=== PATIENT | male | born 1995 | race Caucasian/White ===

== ENCOUNTER 2020-11-24 08:38 | Emergency (ER) | payer OTHER, SELFPAY ==
--- NOTE | ~2020-11-24 | XR_ITS ---
EXAMINATION: XR SHOULDER, LEFT CLINICAL INFORMATION: Pain COMPARISON: None TECHNIQUE: AP external rotation, Grashey, scapular Y, and axillary views of the left shoulder. FINDINGS: No fracture or dislocation. The glenohumeral joint is well aligned. The joint space is maintained. The acromioclavicular joint is intact. The visualized lung is clear. The visualized ribs are intact. XR/XR shoulder LT min 2V IMPRESSION: Normal left shoulder.
[2020-11-24 09:18] VITALS: BP 141/66; PULSE 76; RESP 16; TEMP 36.7; O2SAT 100; BMI 18.1
--- NOTE | 2020-11-24 09:47 | ED.EXTPRO ---
HPI - Extremity Problem General Chief complaint: Extremity Injury, Upper Stated complaint: left shoulder pain Time Seen by Provider: 11/24/20 09:46 History of Present Illness HPI Narrative: Complains of left shoulder pain for 2 days no obvious injury, no numbness no weakness no tingling no neck pain no chest pain Related Data Previous Rx's Medication Instructions Recorded ibuprofen 600 mg PO Q6H PRN #20 tab 11/24/20 Allergies Allergy/AdvReac Type Severity Reaction Status Date / Time fish derived [FISH] Allergy Unknown ANAPHYLAXIS Unverified 05/12/20 17:13 eleazar [ELEAZAR] Allergy Unknown ANAPHYLAXIS Unverified 05/12/20 17:13 Review of Systems Review of Systems: Positive for left shoulder pain negatives are no fever no chills no dizziness no weakness no headache no neck pain no chest pain no rash no numbness or weakness PMFSH Past Medical History Source: nursing notes reviewed Medical History (Updated 11/25/20 @ 00:01 by Raiza Carcamo) Asthma Social History Social History Smoking Status: Current every day smoker Use of substances other than those prescribed or required for medical reasons: Yes Substance Use Type: Marijuana Substance Use Frequency: Daily Advance Directives: Yes Advance Directives Information Provided: Yes Advance Directives on File: No Physical Exam Vital Signs: Vital Signs: Last Vital Signs Temp 98.0 F 11/24/20 09:18 Pulse 76 11/24/20 09:18 Resp 16 11/24/20 09:18 BP 141/66 H 11/24/20 09:18 Pulse Ox 100 11/24/20 09:18 Body Mass Index 18.1 General appearance is no acute distress, comp comfortable and cooperative, a and O x3 The head is normocephalic atraumatic Neck is supple and nontender Chest is clear to auscultation bilaterally with no adventitious sounds noted, no tenderness to chest wall The heart rate regular no murmur Extremities the left shoulder has some limited range motion due to pain, it is not red or warm the skin is normal there is no obvious swelling it is neurovascular intact distal, and pain is reproduced with extension abduction and external rotation The skin no rashes Neuro no motor sensory deficit Course Course Course Narrative: No acute finding on left shoulder x-ray and patient who is well appearing with no evidence of septic joint is referred to orthopedist for follow-up Discharge Plan Discharge Clinical Impression: Arthralgia of left shoulder region Patient Disposition: Home, Self-Care Additional Instructions: Follow with orthopedist for further evaluation Her x-ray was normal, most of these problems are in the soft tissue muscles to tendons and ligaments that get inflamed and usually improve on their own over time If pain continues follow with orthopedist for possible steroid injection Return any time any concerns Prescriptions: New ibuprofen 600 mg tablet 600 mg PO Q6H PRN (Reason: pain) Qty: 20 RF: 0 Referrals: Paul Guillermo MD [Physician] - 2 days (Left shoulder pain, possible steroid shot) Stand Alone Forms: Work/School Release Interventions: ED Discharge Assessment Last Done: 11/24/20 10:59 Discharge Date/Time: 11/24/20 11:00
== END 2020-11-24 11:00 | disposition home or self-care (01) ==
PROVIDERS: Emergency Provider Emergency Medicine Emergency Medical Services; PCP Nurse Practitioner Family
DX: M25.512 Pain in left shoulder (principal); F17.200 Nicotine dependence, unspecified, uncomplicated; F12.90 Cannabis use, unspecified, uncomplicated
CPT/HCPCS: 73030; 99283

== ENCOUNTER 2022-01-13 19:25 | Emergency (ER) | payer OTHER, SELFPAY ==
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
[2022-01-13 19:34] VITALS: BP 118/73; PULSE 83; RESP 18; TEMP 36.6; O2SAT 98; BMI 17.5
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
[2022-01-13] MEDS: Cyclobenzaprine HCl 10 MG TABLET PO (21:22)
== END 2022-01-13 21:45 | disposition home or self-care (01) ==
PROVIDERS: Emergency Provider Emergency Medicine; PCP Nurse Practitioner Family
DX: S13.4XXA Sprain of ligaments of cervical spine, initial encounter (principal); S49.92XA Unspecified injury of left shoulder and upper arm, initial encounter; M54.2 Cervicalgia; V43.62XA Car passenger injured in collision with other type car in traffic accident, initial encounter; Y93.9 Activity, unspecified; Y92.410 Unspecified street and highway as the place of occurrence of the external cause; Y99.9 Unspecified external cause status; Z79.899 Other long term (current) drug therapy
CPT/HCPCS: 73030; 99282; 99283

== ENCOUNTER 2023-07-22 09:33 | Emergency (ER) | payer OTHER, SELFPAY ==
--- NOTE | ~2023-07-22 | US_ITS ---
EXAMINATION: US SCROTUM CLINICAL INFORMATION: Bilateral testicular pain. COMPARISON: Testicular ultrasound 06/25/2018. TECHNIQUE: A sonogram of the scrotum was performed assessing messer-scale appearance and color Doppler flow. Spectral Doppler analysis of the arterial and venous flow were performed in the testes bilaterally. FINDINGS: RIGHT: Right testicle measures 4.6 x 2.4 x 3.1 cm, volume 18 mL. No focal testicular parenchymal lesions are visualized. Spectral Doppler analysis of the arterial and venous flow is normal in the right testis. Right epididymal head is normal in size. No right hydrocele or varicocele is seen. Right epididymal Doppler flow is normal. LEFT: Left testicle measures 4.6 x 2.7 x 3.5 cm, volume 22 mL. No focal testicular parenchymal lesions are visualized. Spectral Doppler analysis of the arterial and venous flow is normal in the left testis. Left epididymal head is normal in size. No left hydrocele or varicocele is seen. Left epididymal Doppler flow is normal. ADDITIONAL FINDINGS: There is a 4.8 x 0.9 x 1.4 cm complex extratesticular collection in the right groin with heterogeneous debris, thickened [place]way and significant surrounding hyperemia concerning for an abscess in the appropriate clinical context. Several prominent adjacent right inguinal lymph nodes are seen with overall a nonaggressive morphology including preserved fatty hilum and reniform shape, that are most likely reactive. US/US scrotum doppler IMPRESSION: There is a 4.8 cm complex, extratesticular collection in the right groin concerning for an abscess in the appropriate clinical context. Reactive right inguinal lymphadenopathy seen. Recommend short-term follow-up ultrasound after treatment to ensure appropriate resolution.
--- NOTE | ~2023-07-22 | US_ITS ---
EXAMINATION: US SCROTUM CLINICAL INFORMATION: Bilateral testicular pain. COMPARISON: Testicular ultrasound 06/25/2018. TECHNIQUE: A sonogram of the scrotum was performed assessing messer-scale appearance and color Doppler flow. Spectral Doppler analysis of the arterial and venous flow were performed in the testes bilaterally. FINDINGS: RIGHT: Right testicle measures 4.6 x 2.4 x 3.1 cm, volume 18 mL. No focal testicular parenchymal lesions are visualized. Spectral Doppler analysis of the arterial and venous flow is normal in the right testis. Right epididymal head is normal in size. No right hydrocele or varicocele is seen. Right epididymal Doppler flow is normal. LEFT: Left testicle measures 4.6 x 2.7 x 3.5 cm, volume 22 mL. No focal testicular parenchymal lesions are visualized. Spectral Doppler analysis of the arterial and venous flow is normal in the left testis. Left epididymal head is normal in size. No left hydrocele or varicocele is seen. Left epididymal Doppler flow is normal. ADDITIONAL FINDINGS: There is a 4.8 x 0.9 x 1.4 cm complex extratesticular collection in the right groin with heterogeneous debris, thickened conway and significant surrounding hyperemia concerning for an abscess in the appropriate clinical context. Several prominent adjacent right inguinal lymph nodes are seen with overall a nonaggressive morphology including preserved fatty hilum and reniform shape, that are most likely reactive. US/US scrotum IMPRESSION: There is a 4.8 cm complex, extratesticular collection in the right groin concerning for an abscess in the appropriate clinical context. Reactive right inguinal lymphadenopathy seen. Recommend short-term follow-up ultrasound after treatment to ensure appropriate resolution.
[2023-07-22 09:54] VITALS: BP 127/65; PULSE 64; RESP 16; TEMP 37.1; O2SAT 98; BMI 17.8
--- NOTE | 2023-07-22 12:29 | ED_ITS ---
HPI - Male Genitourinary General Chief complaint: Urogenital-Male Stated complaint: Swollen testicles/penis? Time Seen by Provider: 07/22/23 11:29 Source: patient Mode of arrival: ambulatory Limitations: no limitations History of Present Illness HPI Narrative: 28-year-old male presents with concerns of a bump to the right side of his testicle, he tells me it has been progressively worsening over the past few days , also voicing concern for STDs he is sexually active without protection. Denies fevers, chills, penile discharge, dysuria, urinary frequency, urgency. Related Data Previous Rx's Medication Instructions Recorded ibuprofen 600 mg tablet 600 mg PO Q6H PRN pain #20 tabs 11/24/20 cyclobenzaprine 10 mg tablet 10 mg PO TID PRN muscle spasm #14 01/13/22 tabs doxycycline hyclate 100 mg capsule 100 mg PO BID 10 days #20 caps 07/22/23 metronidazole 500 mg tablet 500 mg PO BID 7 days #14 tabs 07/22/23 Allergies Allergy/AdvReac Type Severity Reaction Status Date / Time fish derived [FISH] Allergy Unknown ANAPHYLAXIS Verified 01/13/22 19:36 eleazar [ELEAZAR] Allergy Unknown ANAPHYLAXIS Verified 01/13/22 19:36 Review of Systems Review of Systems: Constitutional : No Weight loss, No Fever, No Chills, No Fatigue, No Malaise ENT/Mouth : No sore throat, No Rhinorrhea Eyes: No Eye Pain, No Swelling, No Redness Cardiovascular : No Chest Pain, No SOB, No Dyspnea on Exertion, No Orthopnea, No Edema, No Palpitations Respiratory : No Cough, No Sputum, No Wheezing Gastrointestinal : No Nausea, No Vomiting, No Diarrhea, No Constipation, No abdominal Pain, No Hematochezia, No Melena Genitourinary : No Dysuria, No Urinary Frequency, No Hematuria, Musculoskeletal : No joint pain, No Myalgias, No Joint Swelling Skin : + Skin Lesions, No rash Neuro : No Weakness, No Numbness, No Dizziness, No Headache Psych : No Anxiety/Panic, No Depression All other systems reviewed and are negative Yes all other systems are reviewed and are negative PMFSH Past Medical History Attestation statement: The following information was validated with the patient. Source: old records reviewed and nursing notes reviewed Medical History Asthma Social History Substance Use Type: Marijuana Advance Directives: No Physical Exam Vital Signs: Vital Signs: Last Vital Signs Temp 98.7 F 07/22/23 09:54 Pulse 64 07/22/23 09:54 Resp 16 07/22/23 09:54 BP 127/65 07/22/23 09:54 Pulse Ox 98 07/22/23 09:54 O2 Del Method Room Air 07/22/23 09:54 BMI result Body Mass Index 17.8 vss Appearance: Alert.? Oriented X3.? No acute distress.? Head: Normocephalic, atraumatic, no step-offs or deformities Eyes: Pupils equal, round and reactive to light.? ENT: Pharynx normal.? Neck: Normal inspection.? Neck supple.? CVS: Normal heart rate and rhythm.? Pulses normal.? Respiratory: No respiratory distress.? Breath sounds normal.? Abdomen: Soft and nontender.? Skin: Skin warm and dry.? Normal skin color.? Normal skin turgor.? Extremities: No lower extremity edema.? No calf ttp. 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 developing abscess mild fluctuance Neuro: Oriented X 3.? No motor deficit.? No sensory deficit. CN 2-12 intact Course Reevaluation(s) Reevaluation #1: Patient's ultrasound revealing 4.8 cm complex extratesticular collection the right groin concerning for abscess, will do fine needle aspiration at this time there is reactive right inguinal lymphadenopathy. Patient prophylactically treated for STDs based off of concern. Will discharge him home on doxycycline. Educated patient on diagnosis and treatment plan, answered all question, patient verbalizes understanding. At this time patient will be discharged home, advised to return with new or worsening symptoms. Educated on worrisome signs and symptoms and when to return. At this time I feel comfortable discharge home. Time: 13:35 Reevaluation #2: Fine-needle aspiration was done and 4 cc of serosanguineous fluid/purulence expressed Time: 14:25 Medications Administered Discontinued Medications Generic Name Dose Route Start Last Admin Trade Name Barbie PRN Reason Stop Dose Admin Ceftriaxone Sodium 500 mg/ 0 mg 07/22/23 12:47 07/22/23 12:51 Lidocaine HCl 1 ml IM 07/22/23 12:48 1 kit ONCE ONE Administration Doxycycline Monohydrate 100 mg 07/22/23 12:33 07/22/23 12:43 Doxycycline Monohydrate 100 Mg Capsule PO 07/22/23 12:34 100 mg ONCE ONE Administration Lidocaine HCl 5 ml 07/22/23 13:36 07/22/23 13:56 Lidocaine Hcl 2 % Mpf 5 Ml Vial SUBCUT 07/22/23 13:37 5 ml ONCE ONE Administration Metronidazole 500 mg 07/22/23 12:33 07/22/23 12:43 Metronidazole 500 Mg Tablet PO 07/22/23 12:34 500 mg ONCE ONE Administration Medical Decision Making Medical Decision Making [facility] Narrative: 1230 28 year old male presents w/ concerns of my testicle hurts X2 days he is concerned about possibility of STD 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 developing abscess mild fluctuance Concerns for cellulitis versus abscess versus epididymitis versus orchitis versus STD versus herpes verses HPV. Unlikely Fouriers gangrene, necrotizing infection, torsion Plan- US, NG/CT, UA Patient agrees to prophylactic treatment for gonorrhea, chlamydia and trichomonas. 500mg IM ceftriaxone has been given here and scripts for doxycycline 100 mg po BID X 7 days and metronidazole 500 mg po BID X 7 days have been given to the patient. Educated on safe sex practices, full pannel STD testing and speaking to? partners on possible STD. Differential Diagnosis Differential Diagnoses: The differential diagnosis associated with the presentation includes Concerns for cellulitis versus abscess versus epididymitis versus orchitis versus STD versus herpes verses HPV. Unlikely Fouriers gangrene, necrotizing infection, torsion Admission/Observation Consideration of admission/observation: Escalation of care including admission/observation considered unlikely Lab Data [facility] Lab Attestation statement: I reviewed the patient's lab results. Labs: Lab Results 07/22/23 07/22/23 Range/Units 10:04 12:52 Urine Color Yellow Urine Appearance Clear Urine pH 7.5 (5.0-9.0) Ur Specific [place] 1.010 (1.005-1.025) Urine Protein Negative (Neg-Trace) mg/dL Urine Glucose (UA) Negative (Negative) mg/dL Urine Ketones Negative (Negative) mg/dL Urine Blood Negative (Negative) Urine Nitrite Negative (Negative) Ur Leukocyte Esterase Negative (Negative) Urine RBC 0-2 (0-2) /HPF Urine WBC 0-5 (0-5) /HPF Ur Squamous Epith Cells 0-2 (0-2) /HPF Urine Bacteria None Seen (None Seen) Hyaline Casts 0-2 (0-2) /LPF Chlam trachomat DNA PCR NOT DETECTED (Not Detect.) N.gonorrhoeae DNA (PCR) NOT DETECTED (Not Detect.) Independent Interpretation I performed an independent interpretation of an: Ultrasound Radiology Impression Discussion of test interpretation with radiology: I have reviewed the radiologist's reading. Prescription Management I considered prescription management with: Antibiotic Critical Care Time Critical Care Time Critical Care Time: No Discharge Plan Discharge Clinical Impression: Cellulitis, Pain in testicle, Abscess Patient Disposition: Home, Self-Care Instructions: Cellulitis (ED), Testicle Pain (ED), Warm Compress or Soak (ED) Additional Instructions: Take your medications as prescribed. If you were prescribed antibiotics today, it is important that you take your medication to their entirety, do not skip any doses, do not finish them early. Follow-up with your primary care provider this week. Return to the emergency department with new or worsening symptoms. Such as fevers, chills, chest pain, shortness of breath, nausea, vomiting, dizziness, headache, vision changes, lethargy In case of emergency call 911 Apply warm compresses to the area. You were treated here today with ceftriaxone, a medication that treats gonorrhea. I have sent to your pharmacy Metronidazole that covers trichomonas, and Doxycycline which covers for chlamydia. Please be reevaluated by a healthcare provider after completing your antibiotics. Do not stop them early, do not skip any doses. Until you are reevaluated by a health care provider please practice safe sex as disucussed. Please also have a conversation with your sexual partners.? I also advise you to obtain full panel STD testing to test for other STDs including HIV, Hepatitis B & C and syphilis with your PCP or a local clinic. Prescriptions: New doxycycline hyclate 100 mg capsule 100 mg PO BID 10 Days Qty: 20 0RF metronidazole 500 mg tablet 500 mg PO BID 7 Days Qty: 14 0RF No Action ibuprofen 600 mg tablet 600 mg PO Q6H PRN (Reason: pain) Qty: 20 0RF cyclobenzaprine 10 mg tablet 10 mg PO TID PRN (Reason: muscle spasm) Qty: 14 0RF Ref[place] [facility] [place] Group] - 2 days Physician,None [Primary Care Provider] - 2 days Stand Alone Forms: Work/School Release Interventions: ED Discharge Assessment Last Done: 07/22/23 13:57 Discharge Date/Time: 07/22/23 13:57
[2023-07-22] MEDS: metroNIDAZOLE 500 MG TABLET PO (12:43)
[2023-07-22] MEDS: Doxycycline Monohydrate 100 MG CAPSULE PO (12:43)
[2023-07-22] MEDS: cefTRIAXone sodium 500 MG, Lidocaine HCl 1 % MPF 1 ML IM (12:51)
[2023-07-22 13:01] LABS: Appearance Urine Clear; Color Urine Yellow; Glucose Urine UA Negative (Negative); Leukocyte Esterase Urine Negative (Negative); Nitrite Urine Negative (Negative); PH 7.5 (5.0-9.0); Urine Blood Negative (Negative); Urine Ketones Negative (Negative); Urine Protein Negative (Neg-Trace)
[2023-07-22 13:03] LABS: Bacteria Urine None Seen (None Seen); Hyaline Casts Urine 0-2 /LPF (0-2); RBC Urine 0-2 /HPF (0-2); Squamous Epithelial Cell Urine 0-2 /HPF (0-2); WBC Urine 0-5 /HPF (0-5)
[2023-07-22 13:20] LABS: CT PCR NOT DETECTED (Not Detect.); NG PCR NOT DETECTED (Not Detect.)
[2023-07-22] MEDS: Lidocaine HCl 2 % MPF 5 ML VIAL SUBCUT (13:56)
== END 2023-07-22 13:57 | disposition home or self-care (01) ==
PROVIDERS: Emergency Provider Emergency Medicine
DX: N45.4 Abscess of epididymis or testis (principal); L03.314 Cellulitis of groin; N50.811 Right testicular pain; Z20.2 Contact with and (suspected) exposure to infections with a predominantly sexual mode of transmission
CPT/HCPCS: 0353U; 10160; 76870; 81001; 93975; 96372; 99282; 99284; J0696